=== PATIENT | female | born 1970 | race Two or more races ===

== ENCOUNTER 2019-01-11 08:24 | Inpatient (IN) | payer OTHER ==
[~2019-01-11] VITALS: Ht 160 cm; Wt 65.8 kg
[2019-01-11] MEDS ORDERED: MIDAZOLAM HCL 2 MG/2ML VIAL ONE (10:24)
[2019-01-11] MEDS ORDERED: SCOPOLAMINE HBR 1 EA PATCH.TD72 TD ONE (10:24)
[2019-01-11] MEDS ORDERED: FENTANYL PF 100MCG/2ML AMPUL ONE ×2 (10:25→15:03)
[2019-01-11] MEDS ORDERED: HEPARIN SODIUM, PORCINE 5000 UNITS/1 ML VIAL ONE (10:30)
[2019-01-11] MEDS ORDERED: PROPOFOL 100 ML ONE (10:34)
[2019-01-11] MEDS ORDERED: THROMBIN (BOVINE) 5,000 UNITS VIAL TP ONE (10:39)
[2019-01-11] MEDS ORDERED: HEMOSTATIC MATRIX 8 ML 1 EACH PAD MC ONE (10:39)
[2019-01-11] MEDS ORDERED: BACITRACIN 50000 UNITS/VIAL ONE (10:39)
[2019-01-11] MEDS ORDERED: GELATIN SPONGE,ABSORBABLE 1 EA SPONGE TP ONE (10:39)
[2019-01-11] MEDS ORDERED: CEFAZOLIN 0 GM ONE (10:39)
[2019-01-11] MEDS ORDERED: BUPIVACAINE 0.5 % PF 150 MG/30 ML VIAL ONE (10:40)
[2019-01-11] MEDS ORDERED: Magnesium 1GM/D5W 100ML PREMIX 100 ML IV SCH (11:30)
[2019-01-11] MEDS ORDERED: NITROGLYCERIN 0.4 MG/TAB BOTTLE ONE (12:54)
[2019-01-11] MEDS ORDERED: NICARDIPINE IN DEXTROSE,ISO-OS 200 ML IV ONE (12:58)
[2019-01-11] MEDS ORDERED: ESMOLOL INJ 100 MG/10 ML VIAL IV ONE (13:01)
[2019-01-11 14:00] VITALS: BP 126/74
[2019-01-11 14:01] VITALS: BP 124/74
[2019-01-11] MEDS ORDERED: CEFAZOLIN SODIUM/DEXTROSE,ISO 50 ML IV ONE (14:53)
[2019-01-11 16:00] VITALS: BP 124/74
[2019-01-11] MEDS ORDERED: TYLENOL 650 MG TABLET PO PRN (16:00)
--- NOTE | 2019-01-11 16:19 | NUR ---
MS/RN Recieved from OR Patient received from OR s/p c4-c6 cervical vesectomy by Dr. Kwok. BP 126/74, HR 100, Resp 14, O2 95% on RA. IV line on L hand running at 100ml/hr. All orders received and ordered as per MD. Will continue with care.
[2019-01-11] MEDS ORDERED: ACETAMINOPHEN 325 MG TABLET PO PRN (16:30)
[2019-01-11] MEDS: HYDROMORPHONE 1 MG/1 ML DISP.SYRIN IV PRN ×3 (16:38→22:36)
--- NOTE | 2019-01-11 17:12 | NUR ---
MS/RN non-admin Magnesium was not administered because pt was in surgery.
[2019-01-11] MEDS: CYCLOBENZAPRINE 10 MG TABLET PO SCH (17:28)
[2019-01-11] MEDS ORDERED: LORAZEPAM 0.5 MG TABLET PO PRN (17:30)
[2019-01-11] MEDS: IV NS 0.9% 1,000 ML IV PRN (17:46)
[2019-01-11] MEDS: DEXAMETHASONE SOD PHOSPHATE 4 MG/ML VIAL IV SCH (17:56)
[2019-01-11] MEDS ORDERED: DEXAMETHASONE SOD PHOSPHATE 4 MG/ML VIAL IV SCH (18:00)
--- NOTE | 2019-01-11 18:55 | NUR ---
MS/RN Closing note Patient is resting in bed, A/O x4, showing no signs of acute distress or SOB, saturating >95% on RA. Patient is on continuous O2 saturation. No change in LOC since time of admission, neuro checks to be performed q [address] Kwok. Patient tolerating clear liquid diet well. Ambulating with assistance to bathroom. Skin is intact. IV on the left hand #20 running at 100ml/hour NS. Fall, safety and aspiration precautions enforced. Call light is within reach and patient is aware of how to call for assistance when needed. Will endorse to maintenance mechanic 2nd shift.
[2019-01-11] MEDS: HYDROCODONE/APAP 10/325MG 1 EA TABLET PO PRN (18:59)
[2019-01-11] MEDS ORDERED: MAG HYDROX/AL HYDROX/SIMETH 30 ML UDC PO PRN (19:30)
[2019-01-11 20:00] VITALS: BP 128/74
--- NOTE | 2019-01-11 20:00 | NUR ---
MS RN NOTES RECEIVED PATIENT AWAKE IN BED WITH C/O 10/10 NECK PAIN. PRN DILAUDID GIVEN, WILL CONTINUE TO MONITOR FOR EFFECTIVENESS.. CALL LIGHT WITHIN REACH. FAMILY AT BEDSIDE. PERIPHERAL LINE INTACT AND PATENT. BED IN LOW LOCK SETTING. ROOM FREE OF CLUTTER AND BELONGINGS KEPT NEAR BEDSIDE. WILL CONTINUE TO MONITOR.
[2019-01-11] MEDS: HYDROCODONE/APAP 5/325MG 1 EACH TABLET PO PRN (21:36)
[2019-01-11] MEDS: ANCEF 1 G in IV D5W 50 ML IV SCH (21:36)
[2019-01-12] MEDS: DEXAMETHASONE SOD PHOSPHATE 4 MG/ML VIAL IV SCH ×2 (01:02→09:51)
[2019-01-12] MEDS: HYDROCODONE/APAP 10/325MG 1 EA TABLET PO PRN ×2 (01:02→08:20)
[2019-01-12] MEDS: ANCEF 1 G in IV D5W 50 ML IV SCH (03:47)
[2019-01-12] MEDS: HYDROCODONE/APAP 5/325MG 1 EACH TABLET PO PRN (03:47)
[2019-01-12] MEDS: IV NS 0.9% 1,000 ML IV PRN ×2 (05:55→16:38)
--- NOTE | 2019-01-12 06:51 | NUR ---
MS RN NOTES PATIENT AWAKE IN BED WITH NO DISTRESS NOTED. CALL LIGHT WITHIN REACH. DTR AT BEDSIDE. C-COLLAR IN PLACE AT ALL TIMES. NO EPISODES OF DESATURATION, NECK SWELLING, OR HEMATOMA NOTED DURING SHIFT. HEMOVAC REMAINS INTACT, PATENT, AND DRAINED 30ML SANGUINEOUS DRAINAGE WITH NO FOUL ODOR NOTED. NO BLEEDING, SWELLING, OR REDNESS NOTED AT HEMOVAC INSERTION SITE. NO FURTHER C/O PAIN OR DISCOMFORT. BLE SCD IN PLACE AND FUNCTIONING PROPERLY. ALL DUE MEDS GIVEN ORDERED WITH NO ASE NOTED. PERIPHERAL LINE INTACT AND PATENT. BED IN LOW LOCK SETTING. ROOM FREE OF CLUTTER AND BELONGINGS KEPT NEAR BEDSIDE. WILL ENDORSE TO ONCOMING SHIFT.
[2019-01-12 07:08] LABS: BASOPHILS % (AUTO) 0.3 % (0.0-2.0); HEMATOCRIT 36 % (33-45); HEMOGLOBIN 11.9 g/dL (11.5-14.8); LYMPHOCYTES # (AUTO) 1.2 /CMM (0.8-4.8); LYMPHOCYTES % (AUTO) 9.8 % (20.0-44.0); MEAN CORPUSCULAR HGB CONC 34 g/dl (31.0-36.0); MEAN CORPUSCULAR VOLUME 91 fL (82-100); MONOCYTES # (AUTO) 0.5 /CMM (0.1-1.30); MONOCYTES % (AUTO) 3.9 % (2.0-12.0); NEUTROPHILS # (AUTO) 10.7 /CMM (1.8-8.9); PLATELET COUNT (AUTO) 309 /CMM (150-450); RED BLOOD CELL COUNT(AUTO) 3.92 MIL/uL (4.0-5.2); WHITE BLOOD COUNT (AUTO) 12.4 K/uL (4.3-11.0)
--- NOTE | 2019-01-12 07:30 | NUR ---
RN MS NOTES PT IN BED, AWAKE, ALERT AND ORIENTED, WITH COMPLAINT OF NECK PAIN, NOT IN DISTRESS, ASSISTED TO BATHROOM FOR TOILETING NEEDS, IV FLUIDS INFUSING WELL, CALL LIGHT WITHIN REACH.
[2019-01-12 08:00] VITALS: BP 95/59
[2019-01-12] MEDS ORDERED: FENO160T PO (08:05)
[2019-01-12] MEDS ORDERED: SIMV-49 PO (08:05)
[2019-01-12] MEDS ORDERED: FLUT1DIS3 IH (08:05)
[2019-01-12] MEDS ORDERED: OMEG-72 PO (08:05)
[2019-01-12] MEDS: CYCLOBENZAPRINE 10 MG TABLET PO SCH ×3 (08:17→17:56)
[2019-01-12] MEDS: FAMOTIDINE (20 MG) 20 MG TABLET PO SCH (08:17)
[2019-01-12] MEDS: HYDROMORPHONE 1 MG/1 ML DISP.SYRIN IV PRN ×3 (12:02→19:57)
--- NOTE | 2019-01-12 12:34 | NUR ---
RN MS NOTES PT IN BED, AWAKE, ALERT AND ORIENTED, NOT IN DISTRESS, PAIN MEDS GIVEN FOR PAIN MANAGEMENT, SEEN BY PHYSICAL THERAPIST, ABLE TO WALK ALONG THE HALLWAY WITH A WALKER, NEEDS ATTENDED, TOLERATING CURRENT DIET, ADVANCED TOLERATED, NOW ON FULL LIQUIDS, WILL CONTINUE TO MONITOR.
[2019-01-12 16:00] VITALS: BP 113/72
[2019-01-12 16:44] VITALS: BP 115/61
--- NOTE | 2019-01-12 18:04 | NUR ---
RN MS NOTES PT IN BED, AWAKE, ALERT AND ORIENTED, EATING DINNER, STARTED ON SOFT DIET ORDERED, NO SWALLOWING PROBLEM NOTED, TOLERATING WELL, PAIN MEDS GIVEN ORDERED, CALL LIGHT WITHIN REACH, ASSISTED TO BATHROOM NEEDED, ALL NEEDS ATTENDED.
--- NOTE | 2019-01-12 19:40 | NUR ---
RN MS NOTES RECEIVED PATIENT IN BED, AWAKE, ALERT AND ORIENTED, SAFETY MEASURES IN PLACE, ASPIRATION PRECAUTION EMPHASIZED, PERIPHERAL IV ACCESS ON HER LEFT HAND G#20 WITH NS AT 100 ML/HR INFUSING WELL, BED IN LOW LOCKED POSITION, CALL LIGHT WITHIN REACH, ASSISTED TO BATHROOM NEEDED, ALL NEEDS ATTENDED. PATIENT'S FRIEND AT BEDSIDE AT THIS TIME, WILL CONTINUE TO MONITOR ACCORDINGLY.
[2019-01-12 20:00] VITALS: BP 120/60
[2019-01-13] MEDS: IV NS 0.9% 1,000 ML IV PRN ×3 (02:13→15:20)
[2019-01-13] MEDS: HYDROCODONE/APAP 10/325MG 1 EA TABLET PO PRN ×3 (04:03→20:03)
[2019-01-13] MEDS: COLACE 100 MG CAPSULE PO PRN ×2 (04:06→20:09)
--- NOTE | 2019-01-13 06:09 | NUR ---
RN MS NOTES ALL NEEDS ATTENDED AND MET, ABLE TO REST AND SLEPT AT INTERVALS, PATIENT IN BED, AWAKE AT THIS TIME,ALERT AND ORIENTED, SAFETY MEASURES IN PLACE, ASPIRATION PRECAUTION EMPHASIZED, PERIPHERAL IV ACCESS ON HER LEFT HAND G#20 WITH NS AT 100 ML/HR INFUSING WELL, BED IN LOW LOCKED POSITION, CALL LIGHT WITHIN REACH, ASSISTED TO BATHROOM NEEDED, AT BEDSIDE SINCE 12 AM, PATIENT CLAIMED THAT SHE WAS PASSING GAS THROUGHOUT THE SHIFT, USES BATHROOM WITH STANDBY ASSIST, WALKS AND STANDS SLOWLY AND STEADILY. SOFT DIET TOLERATED WELL FROM LAST NIGHT, ADVANCED DIET TO REGULAR DIET MECHANICAL SOFT, PATIENT ALSO IS REQUESTING TO HAVE A REGULAR MEAL FOR BREAKFAST, INSTRUCTED TO CHEW FOOD SLOWLY AND THOROUGHLY, HEALTH TEACHINGS GIVEN REGARDING ASPIRATION PRECAUTION, BENEFITS OF FREQUENT CHANGING OF POSITION WHILE ON BED, EARLY AMBULATION TOLERATED, HEMOVAC OUTPUT IS 10 ML NOTED WITH BRIGHT RED TO SEROSANGUINOUS OUTPUT. PATIENT VERBALIZES THAT SHE FEELS A LOT BETTER THAN YESTERDAY, MANAGES PAIN WELL, ALL NEEDS ANTICIPATED AND ATTENDED, WILL ENDORSE TO AM NURSE FOR CONTINUITY OF CARE.
--- NOTE | 2019-01-13 07:31 | NUR ---
MS RN OPENING NOTES RECEIVED PATIENT IN BED RESTING COMFORTABLY IN MODERATE HIGH BACK REST. A/O X 4. NO SIGNS OF DISTRESS NOTED AT THIS TIME. ON IV FLUIDS ON LEFT HAND #20 RUNNING @100 ML/HR. PATENT AND INTACT. SAFETY MEASURES IN PLACE, BED IN LOW LOCKED POSITION WITH SIDE RAILS UP X2. CALL LIGHT WITHIN REACH. WILL CONTINUE TO MONITOR.
[2019-01-13 08:00] VITALS: BP 112/75
[2019-01-13] MEDS: FAMOTIDINE (20 MG) 20 MG TABLET PO SCH (08:08)
[2019-01-13] MEDS: CYCLOBENZAPRINE 10 MG TABLET PO SCH ×3 (08:08→16:23)
[2019-01-13] MEDS: HYDROMORPHONE 1 MG/1 ML DISP.SYRIN IV PRN ×2 (08:13→17:39)
[2019-01-13 12:00] VITALS: BP 130/76
--- NOTE | 2019-01-13 14:30 | NUR ---
RN NOTES PER DR. WALDROP, DISCHARGE HOME IF CLEARED BY SURGERY. TRIED CALLING DR. ZAMAN'S OFFICE 3X, NO ANSWER AND LEFT MESSAGE. WAITING FOR CALL BACK.
[2019-01-13 16:00] VITALS: BP 117/80
--- NOTE | 2019-01-13 19:00 | NUR ---
MS RN CLOSING NOTES PATIENT IN BED RESTING COMFORTABLY IN MODERATE HIGH BACK REST. A/O X 4. NO SIGNS OF DISTRESS NOTED THROUGHOUT THE SHIFT. ON IV FLUIDS ON LEFT HAND #20 RUNNING @100 ML/HR. PATENT AND INTACT. SAFETY MEASURES IN PLACE, BED IN LOW LOCKED POSITION WITH SIDE RAILS UP X2. CALL LIGHT WITHIN REACH. WILL ENDORSE TO JIGSAW OPERATOR NURSE FOR FARZANEH.
[2019-01-13 20:00] VITALS: BP 118/61
--- NOTE | 2019-01-13 20:29 | NUR ---
M/S RN OPENING NOTES PATIENT RECEIVED IN BED RESTING IN HIGH FOWLERS POSITION A/O x4. NECK BRACE IN PLACE.IV ON L HAND #20 RUNNING NS, INTACT AND PATENT. NO SIGNS OF ACUTE DISTRESS OR SOB NOTED. SAFETY PRECAUTIONS ARE IN PLACE WITH BED IN LOWEST POSITION, LOCKED, AND CALL LIGHT WITHIN REACH. WILL CONTINUE TO MONITOR.
[2019-01-14] MEDS: IV NS 0.9% 1,000 ML IV PRN (02:01)
[2019-01-14] MEDS: HYDROMORPHONE 1 MG/1 ML DISP.SYRIN IV PRN (05:23)
--- NOTE | 2019-01-14 06:35 | NUR ---
M/S RN CLOSING NOTES PATIENT IN BED RESTING COMFORTABLY IN HIGH FOWLERS POSITION, A/O x4. ABLE TO MAKE NEEDS KNOWN. NO SIGNS DISTRESS NOTED. IV LOCATED ON L HANG G20 RUNNING NS @ 100 ML/ HR, PATENT AND INTACT. SAFETY PRECAUTIONS ARE IN PLACE WITH BED IN LOWEST POSITION, LOCKED, AND CALL LIGHT WITHIN REACH. WILL ENDORSE TO ONCOMING SHIFT ABOUT FARZANEH.
--- NOTE | 2019-01-14 07:23 | NUR ---
MS RN OPENING NOTES RECEIVED PATIENT IN BED RESTING COMFORTABLY IN MODERATE HIGH BACK REST. A/O X 4. NO SIGNS OF DISTRESS NOTED AT THIS TIME. ON IV FLUIDS ON LEFT HAND #20 RUNNING @100 ML/HR. PATENT AND INTACT. NOTED WITH HEMOVAC DRAINING BRIGHTENED RED. SAFETY MEASURES IN PLACE, BED IN LOW LOCKED POSITION WITH SIDE RAILS UP X2. CALL LIGHT WITHIN REACH. WILL CONTINUE TO MONITOR.
[2019-01-14] MEDS: CYCLOBENZAPRINE 10 MG TABLET PO SCH ×2 (08:09→12:19)
[2019-01-14] MEDS: FAMOTIDINE (20 MG) 20 MG TABLET PO SCH (08:09)
[2019-01-14 08:12] VITALS: BP 118/76
[2019-01-14] MEDS: COLACE 100 MG CAPSULE PO PRN (08:33)
[2019-01-14] MEDS: HYDROCODONE/APAP 10/325MG 1 EA TABLET PO PRN (10:00)
--- NOTE | 2019-01-14 12:48 | NUR ---
TOURIST AGENT NOTES PATIENT DISCHARGED IN STABLE CONDITION. A/O X4. ABLE TO MAKE NEEDS KNOWN. V/S TAKEN, STABLE AND RECORDED. PATIENT'S IV REMOVED AND APPLIED PRESSURE DRESSING. SKIN IS INTACT. NAME ARM BAND REMOVED. ALL BELONGINGS IS WITH FAMILY. CHECKED AND SIGNED. HEALTH TEACHINGS/DISCHARGED INSTRUCTIONS GIVEN AND VERBALIZED UNDERSTANDING. PATIENT LEFT UNIT WITH AND 2 HOSPITAL STAFF VIA WHEELCHAIR. LEFT IN NO SIGNS OF DISTRESS, ASSISTED TO THE LOBBY. CHARGE NURSE AWARE OF DISCHARGED.
== END 2019-01-14 12:40 | disposition home or self-care (01) | DRG 473 ==
LOC: DS 08:24 → MED 15:59
PROC: 0PB30ZZ Excision of Cervical Vertebra, Open Approach (ICD-10-PCS; principal; 2019-01-11)
PROC: 0RG20A0 Fusion of 2 or more Cervical Vertebral Joints with Interbody Fusion Device, Anterior Approach, Anterior Column, Open Approach (ICD-10-PCS; principal; 2019-01-11)
PROC: 01N10ZZ Release Cervical Nerve, Open Approach (ICD-10-PCS; 2019-01-11)
PROC: 4A1004G Monitoring of Central Nervous Electrical Activity, Intraoperative, Open Approach (ICD-10-PCS; 2019-01-11)
PROC: 07DR3ZX Extraction of Iliac Bone Marrow, Percutaneous Approach, Diagnostic (ICD-10-PCS; 2019-01-11)
DX: M47.22 Other spondylosis with radiculopathy, cervical region (principal); M48.02 Spinal stenosis, cervical region; M50.122 Cervical disc disorder at C5-C6 level with radiculopathy
CPT/HCPCS: 36415; 72040-TC; 84703-TC; 85025-TC; 86850-TC; 86921-TC; 87081-TC; 97116-TC; 97530-TC; G0378; J0330; J0690; J1100; J1170; J1644; J2250; J2704; J3010; J3475; J3490; J7030; J7060